=== PATIENT | female | born 2000 | race Caucasian/White ===

== ENCOUNTER 2021-04-04 13:54 | Emergency (ER) | payer MEDICAID, SELFPAY ==
[2021-04-04 16:03] VITALS: BP 132/81; PULSE 125; RESP 18; TEMP 38.1; O2SAT 97; BMI 41.5
[2021-04-04] MEDS: Acetaminophen 325 MG TABLET 650 MG PO (16:08)
--- NOTE | 2021-04-04 16:08 | PC.NURSE ---
also c/o vaginal discharge and swelling
[2021-04-04 16:12] LABS: COVID-19 Test Negative (Negative); IDNOW Serial# 9DD0AD1C
[2021-04-04 17:42] LABS: Appearance Urine HAZY; Color Urine DK YELLOW; Glucose Urine UA NEG (NEG); Leukocyte Esterase Urine TRACE (NEG); Nitrite Urine NEG (NEG); Specific Gravity - Urine >= 1.030 (1.005-1.025); UACC Culture Trigger YES; UPreg QC Valid YES; Urine Blood 3+ (NEG); Urine Ketones >=80 MG/DL (NEG); Urine Pregnancy NEGATIVE (NEGATIVE); Urine Protein 2+ MG/DL (NEG-TRACE)
[2021-04-04 17:54] LABS: Bacteria Urine 3+ /LPF; Mucus Urine 2+ /LPF; Squamous Epithelial Cell Urine 3+ /LPF
--- NOTE | 2021-04-04 18:56 | ED_ITS ---
HPI - URI/Sore Throat General Chief Complaint: Upper Respiratory Symptoms Stated Complaint: fever cough dizzy covid exposed Source: patient Mode of arrival: ambulatory Limitations: no limitations History of Present Illness HPI Narrative: 20-year-old female presents with upper respiratory symptoms. MD elicited complaint: fever, rhinorrhea and nasal congestion Onset (ago): day(s) Consistency: constant Severity: mild Description of mucous: clear Able to tolerate fluids by mouth: Yes Exacerbating factors: nothing Relieving factors: nothing Context: sick contacts Associated symptoms: fever, chills, myalgias, headache and cough Treatments prior to arrival: none Related Data Previous Rx's Medication Instructions Recorded cefuroxime axetil 500 mg tablet 500 mg PO Q12H 7 Days #14 tab 04/04/21 Allergies Allergy/AdvReac Type Severity Reaction Status Date / Time No Known Allergies Allergy Verified 04/04/21 16:02 Review of Systems Review of Systems: Constitutional: positive Fever, positive Chills, positive fatigue, positive Malaise ENT/Mouth: positive sore throat, positive runny nose Eyes: No Discharge Cardiovascular: No Chest Pain, No SOB Respiratory: Positive Cough, No Sputum, No Wheezing, No Smoke Exposure, No Dyspnea Gastrointestinal: No Nausea, No Vomiting, No Diarrhea Genitourinary: no irregular bleeding, positive Dysuria, No Urinary Frequency, No Hematuria, No Urinary Incontinence, No Urgency, No Flank Pain, Musculoskeletal: positive Myalgia Skin: No rash Neuro: No Headache Yes all other systems are reviewed and are negative [facility] Past Medical History Attestation statement: The following information was validated with the patient. Source: old records reviewed Social History Social History Advance Directives: No Advance Directives Information Provided: Yes Physical Exam Vital Signs: Vital Signs: Last Vital Signs Temp 100.5 F H 04/04/21 16:03 Pulse 125 H 04/04/21 16:03 Resp 18 04/04/21 16:03 BP 132/81 04/04/21 16:03 Pulse Ox 97 04/04/21 16:03 BMI result Body Mass Index 41.5 Appearance: Alert. Oriented X3. No acute distress. Eyes: Pupils equal, round and reactive to light. Sclera nonicteric. EOMI. ENT: Pharynx normal. Nasal congestion noted. Neck: Normal inspection. Neck supple. No nuchal rigidity. CVS: Normal heart rate and rhythm. Pulses normal. Respiratory: No respiratory distress. Breath sounds normal. Abdomen: Soft and nontender. Skin: Skin warm and dry. Normal skin color. Normal skin turgor. Extremities: No lower extremity edema. Gait well-balanced well coordinated. Neuro: No motor deficit. No sensory deficit. Cranial nerves 2-12 intact. Course Course Course Narrative: 20-year-old female presents with upper respiratory symptoms consistent with COVID-19 as well as dysuria. COVID test is negative. She had positive COVID-19 and influenza contacts. She advised to maintain social isolation as if she were positive for influenza a and COVID although she tested negative for COVID. She is also positive for UTI. Will treat with cefuroxime. Patient verbalized understanding of and agrees to plan of care to discharge home. MDM - URI/Sore Throat MDM Narrative Medical decision making narrative: UTI Differential Diagnosis Differential diagnosis: Likely upper respiratory infection, viral infection, bronchitis, influenza and pharyngitis Medical Records Attestation: I reviewed the patient's medical records. Lab Data Attestation: I reviewed the patient's lab results. Labs: Lab Results 04/04/21 04/04/21 04/04/21 Range/Units 15:39 17:22 17:22 Urine Color DK YELLOW Urine Appearance HAZY Urine pH 6.0 (5.0-8.0) Ur Specific Robbins >= 1.030 H (1.005-1.025) Urine Protein 2+ H (NEG-TRACE) MG/DL Urine Glucose (UA) NEG (NEG) MG/DL Urine Ketones >=80 (NEG) MG/DL Urine Blood 3+ H (NEG) Urine Nitrite NEG (NEG) Ur Leukocyte Esterase TRACE H (NEG) Urine RBC 5-9 H (0) /HPF Urine WBC 15-29 H (0-4) /HPF Ur Squamous Epith Cells 3+ /LPF Urine Bacteria 3+ /LPF Urine Mucus 2+ /LPF Urine Test NEGATIVE (NEGATIVE) COVID-19 (PETER) Negative (Negative) COVID-19 Clin Com See Note Discharge Plan Discharge Clinical Impression: Viral infection, UTI (urinary tract infection) Patient Disposition: Home, Self-Care Instructions: Urinary Tract Infection in Women (ED), Viral Syndrome (ED) Additional Instructions: You were evaluated for upper respiratory symptoms. You did have positive COVID- 19 and influenza exposures. Please treat yourself as if you are positive for both of these viral infections. Your COVID test was negative. Please alternate Tylenol 650 mg every 6 hours and Motrin 600 mg every 6 hours as needed for fever control and muscle aches. Her last dose of Tylenol was given to you in the emergency department at 4:00 p.m.. Drink plenty of fluids. Urinalysis indicates UTI. Please take cefuroxime twice a day for the next 7 days. Thank you for choosing this emergency department for evaluation. Please follow-up with primary care physician as needed. Return to the emergency department for any new, concerning, or worsening symptoms. Prescriptions: New cefuroxime axetil 500 mg tablet 500 mg PO Q12H 7 Days Qty: 14 RF: 0 Interventions: ED Discharge Assessment Last Done: 04/04/21 19:47 Discharge Date/Time: 04/04/21 19:47
== END 2021-04-04 19:47 | disposition home or self-care (01) ==
PROVIDERS: Emergency Provider Internal Medicine
DX: B34.9 Viral infection, unspecified (principal); N39.0 Urinary tract infection, site not specified; R50.9 Fever, unspecified; Z20.822 Contact with and (suspected) exposure to COVID-19; Z79.899 Other long term (current) drug therapy
CPT/HCPCS: 36415; 81001; 81025; 87086; 87635; 99283